=== PATIENT | male | born 1965 | race American Indian/Alaskan Native ===

== ENCOUNTER 2021-06-24 19:28 | Observation (INO) | payer OTHER ==
--- NOTE | 2021-06-24 23:22 | Emergency Department Report ---
HPI - General Chief Complaint: Head Injury Time Seen by Provider: 06/24/21 23:13 - HPI HPI: This is a 56-year-old -[place]ian male presents to the emergency department with a complaint of passing out while at work just prior to presentation. Patient says that he was feeling fine and then all of a sudden became very dizzy. He was witnessed passing out and woke up on his knees. He hit the right side of his head and his bottom lip on the wall. At the time of my examination the patient is awake, alert, oriented, AAO x3. He denies any previous history of passing out. He denies any current headache, neck pain, back pain, chest pain, palpitations. The patient had an EKG done through triage that showed SVT with a heart rate of 192 bpm. A second EKG done two minutes later showed sinus tachycardia at 123 bpm. He has a past medical history of hypertension, hyperlipidemia, diabetes. He did not take anything for his symptoms prior to presentation today. ED Past Medical Hx - Past Medical History Previous Medical History?: Yes Hx Hypertension: Yes Hx Diabetes: Yes Additional medical history: high cholesterol - Surgical History Past Surgical History?: No ED Review of Systems ROS: Stated complaint: SYNCOPAL EPISODE @ WORK/HIT FACE ON FLOOR Other details as noted in HPI Comment: All other systems reviewed and negative Constitutional: denies: chills, fever Eyes: denies: eye pain, vision change ENT: denies: ear pain, throat pain Respiratory: denies: cough, shortness of breath Cardiovascular: syncope. denies: chest pain Gastrointestinal: denies: abdominal pain, vomiting Genitourinary: denies: dysuria, discharge Musculoskeletal: denies: back pain, arthralgia Skin: denies: rash, lesions Neurological: denies: numbness, paresthesias Physical Exam - Physical Exam Vital Signs: Vital Signs 06/24/21 22:03 Temperature 98.4 F Pulse Rate 101 H Respiratory 16 Rate Blood Pressure 144/95 O2 Sat by Pulse 99 Oximetry Physical Exam: GENERAL: The patient is well-developed well-nourished. HENT: Normocephalic. Atraumatic. Patient has moist mucous membranes. EYES: Extraocular motions are intact. NECK: Supple. Trachea is midline. CHEST/LUNGS: Clear to auscultation. There is no respiratory distress noted. HEART/CARDIOVASCULAR: Regular. There is mild to moderate tachycardia. There is no murmur. ABDOMEN: Abdomen is soft, nontender. Patient has normal bowel sounds. There is no abdominal distention. SKIN: Skin is warm and dry. NEURO: The patient is awake, alert, and oriented. The patient is cooperative. The patient has no focal neurologic deficits. Normal speech. Cranial nerves II through XII grossly intact. No facial asymmetry. No pronator drift. MUSCULOSKELETAL: There is no tenderness or deformity. There is no limitation range of motion. ED Course Vital Signs 06/24/21 22:03 Temperature 98.4 F Pulse Rate 101 H Respiratory 16 Rate Blood Pressure 144/95 O2 Sat by Pulse 99 Oximetry - Reevaluation(s) Reevaluation #1: 06/24/21 23:55 I went to reevaluate the patient and found him to have a heart rate of about 200 and was back in SVT. The patient was given 6 mg of adenosine and converted back to a sinus tachycardia at about 125 bpm. ED Medical Decision Making - Lab Data Result diagrams: 06/24/21 23:03 06/24/21 23:03 Lab Results 06/24/21 06/24/21 06/24/21 Range/Units 23:03 23:03 23:19 WBC 7.8 (4.5-11.0) K/mm3 RBC 5.41 H (3.65-5.03) M/mm3 Hgb 15.0 (11.8-15.2) gm/dl Hct 45.5 (35.5-45.6) % MCV 84 (84-94) fl MCH 28 (28-32) pg MCHC 33 (32-34) % RDW 15.0 (13.2-15.2) % Plt Count 216 (140-440) K/mm3 Rice % (Auto) Flood Control Engineer Add Manual Diff Complete Total Counted 100 Seg Neuts % (Manual) 50.0 (40.0-70.0) % Band Neutrophils % 1.0 % Lymphocytes % (Manual) 33.0 (13.4-35.0) % Monocytes % (Manual) 12.0 H (0.0-7.3) % Eosinophils % (Manual) 4.0 (0.0-4.3) % Nucleated RBC % Not Reportable Seg Neutrophils # Man 3.9 (1.8-7.7) K/mm3 Band Neutrophils # 0.1 K/mm3 Lymphocytes # (Manual) 2.6 (1.2-5.4) K/mm3 Abs React Lymphs (Man) 0.0 K/mm3 Monocytes # (Manual) 0.9 H (0.0-0.8) K/mm3 Eosinophils # (Manual) 0.3 (0.0-0.4) K/mm3 Basophils # (Manual) 0.0 (0.0-0.1) K/mm3 Metamyelocytes # 0.0 K/mm3 Myelocytes # 0.0 K/mm3 Promyelocytes # 0.0 K/mm3 Blast Cells # 0.0 K/mm3 WBC Morphology Not Reportable Hypersegmented Neuts Not Reportable Hyposegmented Neuts Not Reportable Hypogranular Neuts Not Reportable Smudge Cells Not Reportable Toxic Granulation Not Reportable Toxic Vacuolation Not Reportable Dohle Bodies Not Reportable Pelger-Huet Anomaly Not Reportable [place] Rods Not Reportable Platelet Estimate Consistent w auto Clumped Platelets Not Reportable Plt Clumps, EDTA Not Reportable Large Platelets Not Reportable Giant Platelets Not Reportable Platelet Satelliting Not Reportable Plt Morphology Comment Not Reportable RBC Morphology Not Reportable Dimorphic RBCs Not Reportable Polychromasia Not Reportable Hypochromasia Not Reportable Poikilocytosis Not Reportable Anisocytosis 1+ Microcytosis Not Reportable Macrocytosis Not Reportable Spherocytes Not Reportable Pappenheimer Bodies Not Reportable Sickle Cells Not Reportable Target Cells Not Reportable Tear Drop Cells Not Reportable Ovalocytes Not Reportable Helmet Cells Not Reportable Baugh-Delight Bodies Not Reportable [place] Rings Not Reportable Rosalia Cells Not Reportable Bite Cells Not Reportable Crenated Cell Not Reportable Elliptocytes Not Reportable Acanthocytes (Spur) Not Reportable Rouleaux Not Reportable Hemoglobin C Crystals Not Reportable Schistocytes Not Reportable Malaria parasites Not Reportable Cam Bodies Not Reportable Hem Pathologist Commnt No D-Dimer (0-234) ng/mlDDU Sodium 138 (137-145) mmol/L Potassium 3.6 (3.6-5.0) mmol/L Chloride 101.1 (98-107) mmol/L Carbon Dioxide 24 (22-30) mmol/L Anion Gap 17 mmol/L BUN 18 (9-20) mg/dL Creatinine 1.1 (0.8-1.3) mg/dL Estimated GFR > 60 ml/min BUN/Creatinine Ratio 16 % Glucose 244 H (75-100) mg/dL Calcium 9.4 (8.4-10.2) mg/dL Total Bilirubin 0.60 (0.1-1.2) mg/dL AST 12 (5-40) units/L ALT 12 (7-56) units/L Alkaline Phosphatase 84 (35-129) units/L Troponin T < 0.010 (0.00-0.029) ng/mL Total Protein 8.0 (6.3-8.2) g/dL Albumin 4.3 (3.9-5) g/dL Albumin/Globulin Ratio 1.2 % TSH 1.090 (0.270-4.200) mlU/mL 06/24/21 Range/Units 23:19 WBC (4.5-11.0) K/mm3 RBC (3.65-5.03) M/mm3 Hgb (11.8-15.2) gm/dl Hct (35.5-45.6) % MCV (84-94) fl MCH (28-32) pg MCHC (32-34) % RDW (13.2-15.2) % Plt Count (140-440) K/mm3 Rice % (Auto) Add Manual Diff Total Counted Seg Neuts % (Manual) (40.0-70.0) % Band Neutrophils % % Lymphocytes % (Manual) (13.4-35.0) % Monocytes % (Manual) (0.0-7.3) % Eosinophils % (Manual) (0.0-4.3) % Nucleated RBC % Seg Neutrophils # Man (1.8-7.7) K/mm3 Band Neutrophils # K/mm3 Lymphocytes # (Manual) (1.2-5.4) K/mm3 Abs React Lymphs (Man) K/mm3 Monocytes # (Manual) (0.0-0.8) K/mm3 Eosinophils # (Manual) (0.0-0.4) K/mm3 Basophils # (Manual) (0.0-0.1) K/mm3 Metamyelocytes # K/mm3 Myelocytes # K/mm3 Promyelocytes # K/mm3 Blast Cells # K/mm3 WBC Morphology Hypersegmented Neuts Hyposegmented Neuts Hypogranular Neuts Smudge Cells Toxic Granulation Toxic Vacuolation Dohle Bodies Pelger-Huet Anomaly [place] Rods Platelet Estimate Clumped Platelets Plt Clumps, EDTA Large Platelets Giant Platelets Platelet Satelliting Plt Morphology Comment RBC Morphology Dimorphic RBCs Polychromasia Hypochromasia Poikilocytosis Anisocytosis Microcytosis Macrocytosis Spherocytes Pappenheimer Bodies Sickle Cells Target Cells Tear Drop Cells Ovalocytes Helmet Cells Baugh-Delight Bodies [place] Rings Rosalia Cells Bite Cells Crenated Cell Elliptocytes Acanthocytes (Spur) Rouleaux Hemoglobin C Crystals Schistocytes Malaria parasites Cam Bodies Hem Pathologist Commnt D-Dimer 618.88 H (0-234) ng/mlDDU Sodium (137-145) mmol/L Potassium (3.6-5.0) mmol/L Chloride (98-107) mmol/L Carbon Dioxide (22-30) mmol/L Anion Gap mmol/L BUN (9-20) mg/dL Creatinine (0.8-1.3) mg/dL Estimated GFR ml/min BUN/Creatinine Ratio % Glucose (75-100) mg/dL Calcium (8.4-10.2) mg/dL Total Bilirubin (0.1-1.2) mg/dL AST (5-40) units/L ALT (7-56) units/L Alkaline Phosphatase (35-129) units/L Troponin T (0.00-0.029) ng/mL Total Protein (6.3-8.2) g/dL Albumin (3.9-5) g/dL Albumin/Globulin Ratio % TSH (0.270-4.200) mlU/mL - EKG Data -: EKG Interpreted by Me - EKG Data Interpretation: other (EKG done at 2259 shows SVT with a rate of 190 bpm. Left axis deviation. Normal intervals. There are some ST depressions to the anterior, lateral and inferior leads most likely secondary to the extreme tachycardia.) 06/24/21 23:21 Repeat EKG at 2301 shows sinus tachycardia 123 bpm, left axis deviation, normal intervals, PVCs. No ST elevation MO. - Radiology Data Radiology results: report reviewed, image reviewed interpreted by me: Chest x-ray does not show any acute process. There are no pleural effusions, obvious pneumonia and there is no pneumothorax. No widened mediastinum CTA CHEST WITH CONTRAST INDICATION / CLINICAL INFORMATION: Palpitations, Syncope, Elevated dimer. TECHNIQUE: Axial CT images were obtained through the chest after injection of Omnipaque 350, 100 cc IV contrast. 3 plane MIP and/or 3D reconstructions were produced. All CT scans at this location are performed using CT dose reduction for ALARA by means of automated exposure control. COMPARISON: None available. FINDINGS: PULMONARY ARTERIES: No pulmonary emboli. THORACIC AORTA: No significant abnormality. HEART: No significant abnormality. CORONARY ARTERY CALCIFICATION: Mild. MEDIASTINUM / MAIA: No significant abnormality. PLEURA: No pleural effusion. No pneumothorax. LUNGS: No acute air space or interstitial disease. ADDITIONAL FINDINGS: None. UPPER ABDOMEN: Partially imaged right kidney is abnormal appearance with enlargement and suspected dilatation of the collecting system. SKELETAL STRUCTURES: No significant osseous abnormality. IMPRESSION: 1. No CT evidence for pulmonary embolism. 2. Negative for pneumonia. 3. Partially imaged abnormal appearing right kidney. Follow-up multiphase CT is recommended of the abdomen and pelvis. - Medical Decision Making This patient presented to the emergency department after he had a syncopal episode at work. During triage the patient was found to have severe tachycardia and an EKG showed SVT. 2 minutes later a repeat EKG showed sinus tachycardia at about 120 bpm. During my initial evaluation the patient is resting comfortably. Heart and lung sounds are normal to auscultation and he does not appear in any respiratory or acute distress. However, during a reevaluation the patient was found to have a heart rate of about 200 and once again appeared in SVT. He was given 6 mg of adenosine and converted back to sinus tachycardia. Chest x-ray does not show any pneumonia, pleural effusions, widened mediastinum, pneumothorax, or any other acute process. The patient's labs have been mostly unremarkable including CBC, metabolic panel, negative troponin. Patient had an elevated D-dimer level of about 600 and some hyperglycemia without evidence of DKA. Due to the elevated D-dimer level, tachycardia and syncope, patient had a CT angiography of the chest that did not show any pulmonary embolism, dissection, or any other acute process. The patient had a third round of SVT just prior to getting a dose of labetalol. After the labetalol, the patient once again went into sinus tachycardia. There have been no focal, motor or sensory deficits and the patient's cranial nerves are intact. No further syncopal episodes. However, given the recurrence of the episodes of SVT, the patient will be admitted to the hospital for further evaluation and treatment and was accepted for admission by the hospitalist, Dr. Reza. Critical care attestation.: If time is entered above; I have spent that time in minutes in the direct care of this critically ill patient, excluding procedure time. ED Disposition Clinical Impression: SVT (supraventricular tachycardia), Syncope Disposition: ADMITTED INPATIENT Is pt being admited?: Yes Condition: Serious Instructions: Syncope (ED) Referrals: MYRA PINEDASAN JOSE MD PATRICIA [Primary Care Provider] - 3-5 Days Time of Disposition: 02:00
--- NOTE | 2021-06-24 23:44 | XRay Report ---
CHEST 1 VIEW 06/24/2021 10:31 PM INDICATION / CLINICAL INFORMATION: Syncope. COMPARISON: None available. FINDINGS: SUPPORT DEVICES: None. HEART / MEDIASTINUM: No significant abnormality. LUNGS / PLEURA: No significant pulmonary or pleural abnormality. Lung volumes are diminished. No pneu mothorax. ADDITIONAL FINDINGS: No significant additional findings. IMPRESSION: No acute abnormality. Signer Name: Yovany Amezcua MD Signed: 06/24/2021 11:40 PM Workstation Name: [id number]
[2021-06-24 23:47] LABS: Hematocrit 45.5 % (35.5-45.6); Mean Corpuscular HGB Conc 33 % (32-34); Mean Corpuscular Volume 84 fl (84-94); Platelet Count 216 K/mm3 (140-440); Red Blood Count 5.41 M/mm3 (3.65-5.03)
[2021-06-24] MEDS ORDERED: ADENOSINE 6 MG/2 ML INJ ONE (23:50)
[2021-06-24] MEDS ORDERED: ADENOSINE 6 MG/2 ML INJ IV ONE (23:55)
[2021-06-24] MEDS ORDERED: SODIUM CHLORIDE 0.9% 1000 ML 1,000 ML IV ONE (23:55)
[2021-06-25] LABS: Alanine Aminotransferase 12 units/L (7-56); Albumin 4.3 g/dL (3.9-5); BUN/Creatinine Ratio 16; Blood Urea Nitrogen 18 mg/dL (9-20); Calcium 9.4 mg/dL (8.4-10.2); Hemolysis Index 5
--- NOTE | 2021-06-25 01:45 | Cat Scan Report ---
CTA CHEST WITH CONTRAST INDICATION / CLINICAL INFORMATION: Palpitations, Syncope, Elevated dimer. TECHNIQUE: Axial CT images were obtained through the chest after injection of Omnipaque 350, 100 cc I V contrast. 3 plane MIP and/or 3D reconstructions were produced. All CT scans at this location are pe rformed using CT dose reduction for ALARA by means of automated exposure control. COMPARISON: None available. FINDINGS: PULMONARY ARTERIES: No pulmonary emboli. THORACIC AORTA: No significant abnormality. HEART: No significant abnormality. CORONARY ARTERY CALCIFICATION: Mild. MEDIASTINUM / MAIA: No significant abnormality. PLEURA: No pleural effusion. No pneumothorax. LUNGS: No acute air space or interstitial disease. ADDITIONAL FINDINGS: None. UPPER ABDOMEN: Partially imaged right kidney is abnormal appearance with enlargement and suspected di latation of the collecting system. SKELETAL STRUCTURES: No significant osseous abnormality. IMPRESSION: 1. No CT evidence for pulmonary embolism. 2. Negative for pneumonia. 3. Partially imaged abnormal appearing right kidney. Follow-up multiphase CT is recommended of the ab domen and pelvis. Signer Name: Yovany Amezcua MD Signed: 06/25/2021 1:41 AM Workstation Name: [id number]
[2021-06-25] MEDS ORDERED: traMADol 50 MG TAB PO PRN (03:04)
[2021-06-25] MEDS ORDERED: MORPHINE 4 MG/1 ML INJ IV PRN (03:04)
[2021-06-25] MEDS ORDERED: ACETAMINOPHEN 325 MG TAB PO PRN (03:04)
[2021-06-25] MEDS ORDERED: DEXTROSE 50% IN WATER (25GM) 50 ML SYRINGE IV PRN (03:09)
[2021-06-25] MEDS ORDERED: hydrALAZINE 20 MG/1 ML INJ IV PRN (03:09)
--- NOTE | 2021-06-25 03:15 | History and Physical Report ---
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 Patient says that he was feeling fine and then all of a sudden became very dizzy. He was witnessed passing out and woke up on his knees. He hit the right side of his head and his bottom lip on the wall. At the time of my examination the patient is awake, alert, oriented, AAO x3. He denies any previous history of passing out. He denies any current headache, neck pain, back pain, chest pain, palpitations. The patient had an EKG done through triage that showed SVT with a heart rate of 192 bpm. Patient was found to have a heart rate around 200 and was back in SVT. Patient was given 6 mg of adenosine and converted to back to that sinus tachycardia at about 125 bpm. Med rec needs to be done. Advance discharge planning is initiated Past History Past Medical History: diabetes, hypertension, hyperlipidemia Medications and Allergies Allergies Allergy/AdvReac Type Severity Reaction Status Date / Time No Known Allergies Allergy Verified 06/24/21 23:52 Active Meds: Active Medications Acetaminophen (Acetaminophen 325 Mg Tab) 650 mg PO Q6H PRN PRN Reason: Pain, Mild (1-3) Aspirin (Aspirin 81 Mg Tab Chew) 81 mg PO QDAY MARC Atorvastatin Calcium (Atorvastatin 40 Mg Tab) 40 mg PO QHS MARC Dextrose (Dextrose 50% In Water (25gm) 50 Ml Syringe) 50 ml IV Q30MIN PRN; Protocol PRN Reason: Hypoglycemia Hydralazine HCl (Hydralazine 20 Mg/1 Ml Inj) 10 mg IV Q6H PRN PRN Reason: Blood Pressure Sodium Chloride (Nacl 0.9% 1000 Ml) 1,000 mls @ 250 mls/hr IV ONCE ONE Stop: 06/25/21 03:54 Last Admin: 06/24/21 23:59 Dose: 250 mls/hr Documented by: Insulin Human Lispro (Insulin Lispro 100 Unit/Ml) 0 unit SUB-Q ACHS MARC; Protocol Morphine Sulfate (Morphine 4 Mg/1 Ml Inj) 2 mg IV Q5MIN PRN PRN Reason: Chest Pain Pantoprazole Sodium (Pantoprazole 40 Mg Tab) 40 mg PO QDAY MARC Sodium Chloride (Sodium Chloride 0.9% 10 Ml Flush Syringe) 10 ml IV PRN PRN PRN Reason: LINE FLUSH Tramadol HCl (Tramadol 50 Mg Tab) 50 mg PO Q6H PRN PRN Reason: Pain, Moderate (4-6) Review of Systems All systems: negative Cardiovascular: syncope, lightheadedness, other (SVT) Exam - Constitutional Vitals: Temp Pulse Resp BP Pulse Ox 98.4 F 117 H 16 103/62 100 06/24/21 22:03 06/25/21 03:01 06/25/21 03:01 06/25/21 03:01 06/25/21 03:01 General appearance: Present: no acute distress, well-nourished - EENT Eyes: Present: PERRL ENT: hearing intact, clear oral mucosa - Neck Neck: Present: supple, normal ROM - Respiratory Respiratory effort: normal Respiratory: bilateral: CTA - Cardiovascular Heart Sounds: Present: S1 & S2. Absent: rub, click - Extremities Extremities: pulses symmetrical, No edema Peripheral Pulses: within normal limits - Abdominal General gastrointestinal: Present: soft, non-tender, non-distended, normal bowel sounds Male genitourinary: Present: normal - Integumentary Integumentary: Present: clear, warm, dry - Musculoskeletal Musculoskeletal: gait normal, strength equal bilaterally - Psychiatric Psychiatric: appropriate mood/affect, intact judgment & insight - Neurologic Neurologic: CNII-XII intact, moves all extremities HEART Score - HEART Score Troponin: Troponin T < 0.010 ng/mL (0.00-0.029) 06/24/21 23:03 Results - Labs CBC & Chem 7: 06/24/21 23:03 06/24/21 23:03 Labs: Laboratory Last Values WBC 7.8 K/mm3 (4.5-11.0) 06/24/21 23:03 RBC 5.41 M/mm3 (3.65-5.03) H 06/24/21 23:03 Hgb 15.0 gm/dl (11.8-15.2) 06/24/21 23:03 Hct 45.5 % (35.5-45.6) 06/24/21 23:03 MCV 84 fl (84-94) 06/24/21 23:03 MCH 28 pg (28-32) 06/24/21 23:03 MCHC 33 % (32-34) 06/24/21 23:03 RDW 15.0 % (13.2-15.2) 06/24/21 23:03 Plt Count 216 K/mm3 (140-440) 06/24/21 23:03 [place] % (Auto) Dispatch Machine Runner 06/24/21 23:03 D-Dimer 618.88 ng/mlDDU (0-234) H 06/24/21 23:19 Sodium 138 mmol/L (137-145) 06/24/21 23:03 Potassium 3.6 mmol/L (3.6-5.0) 06/24/21 23:03 Chloride 101.1 mmol/L (98-107) 06/24/21 23:03 Carbon Dioxide 24 mmol/L (22-30) 06/24/21 23:03 Anion Gap 17 mmol/L 06/24/21 23:03 BUN 18 mg/dL (9-20) 06/24/21 23:03 Creatinine 1.1 mg/dL (0.8-1.3) 06/24/21 23:03 Estimated GFR > 60 ml/min 06/24/21 23:03 BUN/Creatinine Ratio 16 % 06/24/21 23:03 Glucose 244 mg/dL (75-100) H 06/24/21 23:03 Calcium 9.4 mg/dL (8.4-10.2) 06/24/21 23:03 Total Bilirubin 0.60 mg/dL (0.1-1.2) 06/24/21 23:03 AST 12 units/L (5-40) 06/24/21 23:03 ALT 12 units/L (7-56) 06/24/21 23:03 Alkaline Phosphatase 84 units/L (35-129) 06/24/21 23:03 Troponin T < 0.010 ng/mL (0.00-0.029) 06/24/21 23:03 Total Protein 8.0 g/dL (6.3-8.2) 06/24/21 23:03 Albumin 4.3 g/dL (3.9-5) 06/24/21 23:03 Albumin/Globulin Ratio 1.2 % 06/24/21 23:03 TSH 1.090 mlU/mL (0.270-4.200) 06/24/21 23:19 - Imaging and Cardiology Chest x-ray: report reviewed CT scan - chest: report reviewed Assessment and Plan VTE prophylaxis?: Mechanical Plan of care discussed with patient/family: Yes - Patient Problems (1) Syncope Current Visit: Yes Status: Acute Plan to address problem: Admit the patient to the medical floor telemetry. Aspirin 81 mg p.o. daily. Lipitor 40 mg p.o. daily. Lopressor 25 mg p.o. twice daily. Will do serial cardiac enzyme. We also do echocardiogram and will consult cardiology to see the patient. (2) SVT (supraventricular tachycardia) Current Visit: Yes Status: Acute Plan to address problem: Aspirin 81 mg p.o. daily. Lipitor 40 mg p.o. daily. Lopressor 25 mg p.o. twice daily. Will do serial cardiac enzyme. We also do echocardiogram and will consult cardiology to see the patient. (3) Diabetes Current Visit: Yes Status: Acute Plan to address problem: 1800 kcal ADA diet. Humalog sliding scale moderate dose. Diabetic education (4) High blood pressure Current Visit: Yes Status: Acute Plan to address problem: Hydralazine 10 mg IV every 6 hours as needed. We will continue the home medication. We will monitor the patient closely (5) High cholesterol Current Visit: Yes Status: Acute Plan to address problem: Lipitor 40 mg p.o. daily. We will recheck the lipid panel (6) DVT prophylaxis Current Visit: Yes Status: Acute Plan to address problem: SCD for DVT prophylaxis until CT scan of the head is negative. Protonix 40 mg p.o. daily for GI prophylaxis. Patient is a full code
[2021-06-25 03:17] LABS: Anisocytosis 1+; Band Neutrophils # (Manual) 0.1 K/mm3; Platelet Estimate Consistent w Auto; Total Cells Counted 100
[2021-06-25 04:10] LABS: Hematocrit 42.2 % (35.5-45.6); Hemoglobin 13.6 gm/dl (11.8-15.2); Mean Corpuscular HGB Conc 32 % (32-34); Mean Corpuscular Volume 83 fl (84-94); Platelet Count 191 K/mm3 (140-440); Red Blood Count 5.07 M/mm3 (3.65-5.03)
[2021-06-25 04:30] LABS: BUN/Creatinine Ratio 19; Blood Urea Nitrogen 15 mg/dL (9-20); Calcium 8.8 mg/dL (8.4-10.2); Hemolysis Index 5
[2021-06-25 06:56] LABS: Total Cells Counted 100
[2021-06-25 06:57] LABS: Anisocytosis 1+; Platelet Estimate Consistent w Auto
[2021-06-25] MEDS: INSULIN LISPRO 100 UNIT/ML SUB-Q SCH ×3 (08:04→17:13)
--- NOTE | 2021-06-25 09:14 | Cat Scan Report ---
CT HEAD WITHOUT CONTRAST INDICATION / CLINICAL INFORMATION: syncope and pt hit the side of his head. . TECHNIQUE: All CT scans at this location are performed using CT dose reduction for ALARA by means of automated e xposure control. COMPARISON: None available. FINDINGS: HEMORRHAGE: No evidence of intracranial hemorrhage or extra-axial fluid collection. EXTRA-AXIAL SPACES: Cortical sulci, sylvian fissures and basilar cisterns have an unremarkable appear ance. VENTRICULAR SYSTEM: The third and lateral ventricles are of normal size and configuration. CEREBRAL PARENCHYMA: No areas of abnormal brain parenchymal attenuation are identified. There is no i ndication of recent infarction. MIDLINE SHIFT OR HERNIATION: There is no mass effect. CEREBELLUM / BRAINSTEM: Brainstem and cerebellum have an unremarkable appearance. MIDLINE STRUCTURES:No abnormalities of the pituitary gland or pineal region are identified. INTRACRANIAL VESSELS:No abnormalities are identified on this noncontrast head CT. ORBITS: visualized portions of the orbits have an unremarkable appearance. SOFT TISSUES of HEAD: No significant abnormality. CALVARIUM: Evaluation of bone windows reveals no abnormalities. PARANASAL SINUSES / MASTOID AIR CELLS: Visualized portions of the paranasal sinuses are free from inf lammatory mucosal disease. Mastoid air cells are normally pneumatized. IMPRESSION: 1. Negative head CT without contrast. Signer Name: Rakesh Shaw MD Signed: 06/25/2021 9:10 AM Workstation Name: [id number]
[2021-06-25] MEDS ORDERED: PANTOPRAZOLE 40 MG TAB PO SCH (10:00)
[2021-06-25] MEDS ORDERED: METOPROLOL TARTRATE 25 MG TAB PO SCH (10:00)
[2021-06-25] MEDS ORDERED: LISINOPRIL 40 MG TAB PO SCH (14:00)
--- NOTE | 2021-06-25 14:07 | Progress Note ---
Assessment and Plan Assessment and plan: (1) SVT (supraventricular tachycardia) Current Visit: Yes Status: Acute Plan to address problem: Aspirin 81 mg p.o. daily. Lipitor 40 mg p.o. daily. Lopressor 25 mg p.o. twice daily. Will do serial cardiac enzyme. We also do echocardiogram and will consult cardiology to see the patient. (2) Syncope Current Visit: Yes Status: Acute Plan to address problem: Likely secondary to arrhythmia admit the patient to the medical floor telemetry. Aspirin 81 mg p.o. daily. Lipitor 40 mg p.o. daily. Lopressor 25 mg p.o. twice daily. Will do serial cardiac enzyme. ECHO completed, awaiting read. Cardiology Consulted. (3) type II diabetes mellitus with hyperglycemia Current Visit: Yes Status: Acute Plan to address problem: 1800 kcal ADA diet. Humalog sliding scale moderate dose. Diabetic education (4) hypertensive emergency Current Visit: Yes Status: Acute Plan to address problem: Hydralazine 10 mg IV every 6 hours as needed. Start metoprolol 25 mg p.o. twice daily and lisinopril 40 mg daily we will monitor the patient closely (5) High cholesterol Current Visit: Yes Status: Acute Plan to address problem: Lipitor 40 mg p.o. daily. We will recheck the lipid panel (6) DVT prophylaxis Current Visit: Yes Status: Acute Plan to address problem: SCD for DVT prophylaxis until CT scan of the head is negative. Protonix 40 mg p.o. daily for GI prophylaxis. Patient is a full code History Interval history: No acute complaints on encounter. Patient had bedside intermission coordinator hooked up. Has occasional runs of SVT with ventricular rate in the 180s however is asymptomatic during these runs and blood pressure is stable. Was able to break SVT with Valsalva maneuver. Hospitalist Physical - Physical exam Narrative exam: Physical Exam: Constitutional: Alert, cooperative. No acute distress Head, Ears, Nose: Normocephalic, atraumatic. External ears, nose normal Eyes: Conjunctivae/corneas clear. No icterus. No ptosis. Neck: Supple, no meningeal signs Oral: dentition fair, no thrush Cardiovascular: S1, S2 normal. Tachycardic Respiratory: Good air entry, clear to auscultation bilaterally GI: Soft, non-tender; bowel sounds normal. No peritoneal signs. Musculoskeletal: No pedal edema, no cyanosis. Skin: No rash or abscess, see nursing assessment for full skin exam Hem/Lymphatic: No palpable cervical or supraclavicular nodes. No lymphangitis Psych: Mood ok. Affect normal Neurological: Awake, alert, oriented. No gross abnormality - Constitutional Vitals: Temp Pulse Resp BP Pulse Ox 98.4 F 126 H 20 160/125 99 06/24/21 22:03 06/25/21 10:15 06/25/21 06:15 06/25/21 10:15 06/25/21 06:15 General appearance: Present: no acute distress, well-nourished HEART Score - HEART Score Troponin: Troponin T < 0.010 ng/mL (0.00-0.029) 06/25/21 09:13 Results - Labs CBC & Chem 7: 06/25/21 03:50 06/25/21 03:50 Labs: Laboratory Last Values WBC 5.9 K/mm3 (4.5-11.0) 06/25/21 03:50 RBC 5.07 M/mm3 (3.65-5.03) H 06/25/21 03:50 Hgb 13.6 gm/dl (11.8-15.2) 06/25/21 03:50 Hct 42.2 % (35.5-45.6) 06/25/21 03:50 MCV 83 fl (84-94) L 06/25/21 03:50 MCH 27 pg (28-32) L 06/25/21 03:50 MCHC 32 % (32-34) 06/25/21 03:50 RDW 15.0 % (13.2-15.2) 06/25/21 03:50 Plt Count 191 K/mm3 (140-440) 06/25/21 03:50 [place] % (Auto) Cann[employer] Worker 06/25/21 03:50 Add Manual Diff Complete 06/25/21 03:50 Total Counted 100 06/25/21 03:50 Seg Neuts % (Manual) 54.0 % (40.0-70.0) 06/25/21 03:50 Band Neutrophils % 1.0 % 06/24/21 23:03 Lymphocytes % (Manual) 26.0 % (13.4-35.0) 06/25/21 03:50 Monocytes % (Manual) 20.0 % (0.0-7.3) H 06/25/21 03:50 Eosinophils % (Manual) 4.0 % (0.0-4.3) 06/24/21 23:03 Nucleated RBC % Not Reportable 06/25/21 03:50 Seg Neutrophils # Man 3.2 K/mm3 (1.8-7.7) 06/25/21 03:50 Band Neutrophils # 0.0 K/mm3 06/25/21 03:50 Lymphocytes # (Manual) 1.5 K/mm3 (1.2-5.4) 06/25/21 03:50 Abs React Lymphs (Man) 0.0 K/mm3 06/25/21 03:50 Monocytes # (Manual) 1.2 K/mm3 (0.0-0.8) H 06/25/21 03:50 Eosinophils # (Manual) 0.0 K/mm3 (0.0-0.4) 06/25/21 03:50 Basophils # (Manual) 0.0 K/mm3 (0.0-0.1) 06/25/21 03:50 Metamyelocytes # 0.0 K/mm3 06/25/21 03:50 Myelocytes # 0.0 K/mm3 06/25/21 03:50 Promyelocytes # 0.0 K/mm3 06/25/21 03:50 Blast Cells # 0.0 K/mm3 06/25/21 03:50 WBC Morphology Not Reportable 06/25/21 03:50 Hypersegmented Neuts Not Reportable 06/25/21 03:50 Hyposegmented Neuts Not Reportable 06/25/21 03:50 Hypogranular Neuts Not Reportable 06/25/21 03:50 Smudge Cells Not Reportable 06/25/21 03:50 Toxic Granulation Not Reportable 06/25/21 03:50 Toxic Vacuolation Not Reportable 06/25/21 03:50 Dohle Bodies Not Reportable 06/25/21 03:50 Pelger-Huet Anomaly Not Reportable 06/25/21 03:50 [place] Rods Not Reportable 06/25/21 03:50 Platelet Estimate Consistent w auto 06/25/21 03:50 Clumped Platelets Not Reportable 06/25/21 03:50 Plt Clumps, EDTA Not Reportable 06/25/21 03:50 Large Platelets Not Reportable 06/25/21 03:50 Giant Platelets Not Reportable 06/25/21 03:50 Platelet Satelliting Not Reportable 06/25/21 03:50 Plt Morphology Comment Not Reportable 06/25/21 03:50 RBC Morphology Not Reportable 06/25/21 03:50 Dimorphic RBCs Not Reportable 06/25/21 03:50 Polychromasia Not Reportable 06/25/21 03:50 Hypochromasia Not Reportable 06/25/21 03:50 Poikilocytosis Not Reportable 06/25/21 03:50 Anisocytosis 1+ 06/25/21 03:50 Microcytosis Not Reportable 06/25/21 03:50 Macrocytosis Not Reportable 06/25/21 03:50 Spherocytes Not Reportable 06/25/21 03:50 Pappenheimer Bodies Not Reportable 06/25/21 03:50 Sickle Cells Not Reportable 06/25/21 03:50 Target Cells Not Reportable 06/25/21 03:50 Tear Drop Cells Not Reportable 06/25/21 03:50 Ovalocytes Not Reportable 06/25/21 03:50 Helmet Cells Not Reportable 06/25/21 03:50 [place] Bodies Not Reportable 06/25/21 03:50 [place] Rings Not Reportable 06/25/21 03:50 [place] Cells Not Reportable 06/25/21 03:50 Bite Cells Not Reportable 06/25/21 03:50 Crenated Cell Not Reportable 06/25/21 03:50 Elliptocytes Not Reportable 06/25/21 03:50 Acanthocytes (Spur) Not Reportable 06/25/21 03:50 Rouleaux Not Reportable 06/25/21 03:50 Hemoglobin C Crystals Not Reportable 06/25/21 03:50 Schistocytes Not Reportable 06/25/21 03:50 Malaria parasites Not Reportable 06/25/21 03:50 Cam Bodies Not Reportable 06/25/21 03:50 Hem Pathologist Commnt No 06/25/21 03:50 D-Dimer 618.88 ng/mlDDU (0-234) H 06/24/21 23:19 Sodium 135 mmol/L (137-145) L 06/25/21 03:50 Potassium 3.1 mmol/L (3.6-5.0) L 06/25/21 03:50 Chloride 100.4 mmol/L (98-107) 06/25/21 03:50 Carbon Dioxide 23 mmol/L (22-30) 06/25/21 03:50 Anion Gap 15 mmol/L 06/25/21 03:50 BUN 15 mg/dL (9-20) 06/25/21 03:50 Creatinine 0.8 mg/dL (0.8-1.3) 06/25/21 03:50 Estimated GFR > 60 ml/min 06/25/21 03:50 BUN/Creatinine Ratio 19 % 06/25/21 03:50 Glucose 229 mg/dL (75-100) H 06/25/21 03:50 POC Glucose 210 mg/dL (70-105) H 06/25/21 07:30 Calcium 8.8 mg/dL (8.4-10.2) 06/25/21 03:50 Total Bilirubin 0.60 mg/dL (0.1-1.2) 06/24/21 23:03 AST 12 units/L (5-40) 06/24/21 23:03 ALT 12 units/L (7-56) 06/24/21 23:03 Alkaline Phosphatase 84 units/L (35-129) 06/24/21 23:03 Troponin T < 0.010 ng/mL (0.00-0.029) 06/25/21 09:13 Total Protein 8.0 g/dL (6.3-8.2) 06/24/21 23:03 Albumin 4.3 g/dL (3.9-5) 06/24/21 23:03 Albumin/Globulin Ratio 1.2 % 06/24/21 23:03 TSH 1.090 mlU/mL (0.270-4.200) 06/24/21 23:19 Active Medications - Current Medications Current Medications: Generic Name Dose Route Start Last Admin Trade Name Freq PRN Reason Stop Dose Admin Acetaminophen 650 mg 06/25/21 03:04 Acetaminophen 325 Mg Tab PO Q6H PRN Pain, Mild (1-3) Aspirin 81 mg 06/26/21 10:00 Aspirin 81 Mg Tab Chew PO QDAY [facility] Atorvastatin Calcium 40 mg 06/25/21 22:00 Atorvastatin 40 Mg Tab PO QHS [facility] Dextrose 50 ml 06/25/21 03:09 Dextrose 50% In Water (25gm) 50 Ml Syringe IV Q30MIN PRN Hypoglycemia Protocol Hydralazine HCl 10 mg 06/25/21 03:09 Hydralazine 20 Mg/1 Ml Inj IV Q6H PRN Blood Pressure Insulin Human Lispro 0 unit 06/25/21 07:30 06/25/21 13:38 Insulin Lispro 100 Unit/Ml SUB-Q Not Given ACHS [facility] Protocol Metoprolol Tartrate 25 mg 06/25/21 10:00 06/25/21 10:15 Metoprolol Tartrate 25 Mg Tab PO 25 mg BID MARC Administration Morphine Sulfate 2 mg 06/25/21 03:04 Morphine 4 Mg/1 Ml Inj IV Q5MIN PRN Chest Pain Pantoprazole Sodium 40 mg 06/25/21 10:00 06/25/21 10:16 Pantoprazole 40 Mg Tab PO 40 mg QDAY MARC Administration Sodium Chloride 10 ml 06/25/21 03:04 Sodium Chloride 0.9% 10 Ml Flush Syringe IV PRN PRN LINE FLUSH Tramadol HCl 50 mg 06/25/21 03:04 Tramadol 50 Mg Tab PO Q6H PRN Pain, Moderate (4-6)
--- NOTE | 2021-06-25 16:55 | Consultation ---
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 He was found to have SVT which was terminated with single dose of IV adenosine. He has had persistent sinus tachycardia with frequent PACs since that time. He denies any previous similar episodes Past History Past Medical History: diabetes, hypertension, hyperlipidemia Medications and Allergies Allergies Allergy/AdvReac Type Severity Reaction Status Date / Time No Known Allergies Allergy Verified 06/24/21 23:52 Active Meds: Active Medications Acetaminophen (Acetaminophen 325 Mg Tab) 650 mg PO Q6H PRN PRN Reason: Pain, Mild (1-3) Aspirin (Aspirin 81 Mg Tab Chew) 81 mg PO QDAY [facility] Atorvastatin Calcium (Atorvastatin 40 Mg Tab) 40 mg PO QHS [facility] Dextrose (Dextrose 50% In Water (25gm) 50 Ml Syringe) 50 ml IV Q30MIN PRN; Protocol PRN Reason: Hypoglycemia Hydralazine HCl (Hydralazine 20 Mg/1 Ml Inj) 10 mg IV Q6H PRN PRN Reason: Blood Pressure Insulin Human Lispro (Insulin Lispro 100 Unit/Ml) 0 unit SUB-Q ACHS [facility]; Protocol Last Admin: 06/25/21 13:38 Dose: Not Given Documented by: Lisinopril (Lisinopril 40 Mg Tab) 40 mg PO QDAY MARC Morphine Sulfate (Morphine 4 Mg/1 Ml Inj) 2 mg IV Q5MIN PRN PRN Reason: Chest Pain Pantoprazole Sodium (Pantoprazole 40 Mg Tab) 40 mg PO QDAY [facility] Last Admin: 06/25/21 10:16 Dose: 40 mg Documented by: Sodium Chloride (Sodium Chloride 0.9% 10 Ml Flush Syringe) 10 ml IV PRN PRN PRN Reason: LINE FLUSH Tramadol HCl (Tramadol 50 Mg Tab) 50 mg PO Q6H PRN PRN Reason: Pain, Moderate (4-6) Review of Systems All systems: negative (per) Physical Examination Vital Signs Temp Pulse Resp BP Pulse Ox 98.4 F 101 H 16 144/95 99 06/24/21 22:03 06/24/21 22:03 06/24/21 22:03 06/24/21 22:03 06/24/21 22:03 General appearance: no acute distress Neck: Positive: neck supple Cardiac: Positive: Reg Rate and Rhythm Lungs: Positive: clear to auscultation Abdomen: Positive: Soft, Active Bowel Sounds Extremities: Absent: edema Results 06/25/21 03:50 06/25/21 03:50 Cardiac Enzymes 06/24/21 Range/Units 23:03 AST 12 (5-40) units/L CBC 06/24/21 06/25/21 Range/Units 23:03 03:50 WBC 7.8 5.9 (4.5-11.0) K/mm3 RBC 5.41 H 5.07 H (3.65-5.03) M/mm3 Hgb 15.0 13.6 (11.8-15.2) gm/dl Hct 45.5 42.2 (35.5-45.6) % Plt Count 216 191 (140-440) K/mm3 Comprehensive Metabolic Panel 06/24/21 06/25/21 Range/Units 23:03 03:50 Sodium 138 135 L (137-145) mmol/L Potassium 3.6 3.1 L (3.6-5.0) mmol/L Chloride 101.1 100.4 (98-107) mmol/L Carbon Dioxide 24 23 (22-30) mmol/L BUN 18 15 (9-20) mg/dL Creatinine 1.1 0.8 (0.8-1.3) mg/dL Glucose 244 H 229 H (75-100) mg/dL Calcium 9.4 8.8 (8.4-10.2) mg/dL AST 12 (5-40) units/L ALT 12 (7-56) units/L Alkaline Phosphatase 84 (35-129) units/L Total Protein 8.0 (6.3-8.2) g/dL Albumin 4.3 (3.9-5) g/dL Assessment and Plan Episode of SVT terminated with IV adenosine Htn DM HL Hypokalemia Recommend: Increase beta sophia Replete potassium Check Echo Outpatient EP follow up
[2021-06-25] MEDS ORDERED: METOPROLOL TARTRATE 50 MG TAB PO SCH (22:00)
[2021-06-25] MEDS ORDERED: POTASSIUM CHLORIDE ER 20 MEQ TAB PO ONE (22:22)
--- NOTE | 2021-06-25 22:43 | Event Note ---
Date: 06/25/21 At patient request patient was discharged. Chart was reviewed Echo was reviewed Patient was discharged on his home insulin and metoprolol 50 mg twice a day Patient to follow-up with Dr. Alcaraz and Dr. Bundy Discharge summary to be done by Dr. Benita Waldrop
[2021-06-25 23:35] VITALS: BP 105/63
--- NOTE | 2021-06-26 08:33 | Discharge Summary ---
Providers - Providers Date of Admission: 06/25/21 02:00 Date of discharge: 06/25/21 Attending physician: GIANNA HESS MD 06/25/21 Consult to Cardiac Rehabilitation [CONS] Routine Reason For Exam: Phase I 06/25/21 02:01 Consult to Physician [CONS] Routine Comment: Consulting Provider: MANJU HORN Physician Instructions: Reason For Exam: Recurrent SVT 06/25/21 03:04 Consult to Cardiology [CONS] Routine Consulting Provider: MANJU HORN Reason For Exam: svt 06/25/21 03:09 Consult to Dietitian/Nutrition [CONS] Routine Physician Instructions: Reason For Exam: Reason for Consult: Diet education [facility] Reason for admission: syncope Condition: Good Hospital course: History of present illness: 56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 Patient says that he was feeling fine and then all of a sudden became very dizzy. He was witnessed passing out and woke up on his knees. He hit the right side of his head and his bottom lip on the wall. At the time of my examination the patient is awake, alert, oriented, AAO x3. He denies any previous history of passing out. He denies any current headache, neck pain, back pain, chest pain, palpitations. The patient had an EKG done through triage that showed SVT with a heart rate of 192 bpm. Patient was found to have a heart rate around 200 and was back in SVT. Patient was given 6 mg of adenosine and converted to back to that sinus tachycardia at about 125 bpm. (1) SVT (supraventricular tachycardia) Current Visit: Yes Status: Acute Plan to address problem: Aspirin 81 mg p.o. daily. Lipitor 40 mg p.o. daily. Lopressor 25 mg p.o. twice daily. Will do serial cardiac enzyme. We also do echocardiogram and will consult cardiology to see the patient. (2) Syncope Current Visit: Yes Status: Acute Plan to address problem: Likely secondary to arrhythmia admit the patient to the medical floor telemetry. Aspirin 81 mg p.o. daily. Lipitor 40 mg p.o. daily. Lopressor 25 mg p.o. twice daily. Will do serial cardiac enzyme. ECHO completed, awaiting read. Cardiology Consulted. (3) type II diabetes mellitus with hyperglycemia Current Visit: Yes Status: Acute Plan to address problem: 1800 kcal ADA diet. Humalog sliding scale moderate dose. Diabetic education (4) hypertensive emergency Current Visit: Yes Status: Acute Plan to address problem: Hydralazine 10 mg IV every 6 hours as needed. Start metoprolol 25 mg p.o. twice daily and lisinopril 40 mg daily we will monitor the patient closely (5) High cholesterol Current Visit: Yes Status: Acute Plan to address problem: Lipitor 40 mg p.o. daily. We will recheck the lipid panel (6) DVT prophylaxis Current Visit: Yes Status: Acute Plan to address problem: SCD for DVT prophylaxis until CT scan of the head is negative. Protonix 40 mg p.o. daily for GI prophylaxis. Patient is a full code Chart was reviewed Echo was reviewed Patient was discharged on his home insulin and metoprolol 50 mg twice a day OK for discharge per cardiology. Patient to follow-up with Dr. Alcaraz and Dr. Bundy Disposition: 01 HOME / SELF CARE / HOMELESS Final Discharge Diagnosis (Prints w/discharge instructions): supraventricular tachycardia Time spent for discharge: 25 - Discharge Diagnoses (1) Diabetes Status: Acute (2) High blood pressure Status: Acute (3) High cholesterol Status: Acute (4) SVT (supraventricular tachycardia) Status: Acute (5) Syncope Status: Acute Core Measure Documentation - Palliative Care Palliative Care/ Comfort Measures: Not Applicable - Core Measures Any of the following diagnoses?: none Exam - Physical Exam Narrative exam: Physical Exam: Constitutional: Alert, cooperative. No acute distress Head, Ears, Nose: Normocephalic, atraumatic. External ears, nose normal Eyes: Conjunctivae/corneas clear. No icterus. No ptosis. Neck: Supple, no meningeal signs Oral: dentition fair, no thrush Cardiovascular: S1, S2 normal. Tachycardic, improved Respiratory: Good air entry, clear to auscultation bilaterally GI: Soft, non-tender; bowel sounds normal. No peritoneal signs. Musculoskeletal: No pedal edema, no cyanosis. Skin: No rash or abscess, see nursing assessment for full skin exam Hem/Lymphatic: No palpable cervical or supraclavicular nodes. No lymphangitis Psych: Mood ok. Affect normal Neurological: Awake, alert, oriented. No gross abnormality - Constitutional Vitals: Temp Pulse Resp BP Pulse Ox 98.7 F 110 H 15 105/63 98 06/25/21 19:40 06/25/21 23:01 06/25/21 23:01 06/25/21 23:01 06/25/21 23:01 Plan Follow up with: BRIAN BUNDY MD [Staff Physician] - 7 Days [place] LEONA PINEDA MD [Primary Care Provider] - 3-5 Days
[2021-06-26] MEDS ORDERED: ASPIRIN 81 MG TAB CHEW PO SCH (10:00)
--- NOTE | 2021-06-28 08:48 | Electrocardiograph Report ---
[facility] Test Date: 2021-06-24 Test Time: 23:01:17 Pat Name: LOUISE ANDUJAR Department: Room: A490 1 Gender: M Mamma Logist: JUANITA : 1965 Requested By: EMILEE RASHID Order Number: [id number] Reading MD: Dom Shepherd Measurements Intervals [place] Rate: 123 P: 0 [place]: 166 QRS: -5 QRSD: 95 T: 82 QT: 322 QTc: 459 Interpretive Statements Sinus tachycardia Multiple premature complexes, vent & supraven Compared to ECG 06/24/2021 22:59:38 Supraventricular tachycardia no longer present Early repolarization no longer present Electronically Signed On 06-28-2021 8:48:13 EDT by Dom Shepherd
--- NOTE | 2021-06-28 08:48 | Electrocardiograph Report ---
[facility] Test Date: 2021-06-24 Test Time: 22:59:38 Pat Name: LOUISE ANDUJAR Department: Room: A490 1 Gender: M Software Configuration Specialist: JUANITA : 1965 Requested By: MILLI GIORDANO Order Number: [id number] Reading MD: Dom Shepherd Measurements Intervals [place] Rate: 192 P: 18 [place]: 108 QRS: 0 QRSD: 91 T: 191 QT: 274 QTc: 491 Interpretive Statements Supraventricular tachycardia Repolarization abnormality, prob rate related No previous ECG available for comparison Electronically Signed On 06-28-2021 8:48:06 EDT by Dom Shepherd
== END 2021-06-25 23:00 | disposition home or self-care (01) ==
LOC: ED 19:28 → 4A 06-25 02:00
PROVIDERS: ADMIT Hospitalist; ATTEND Internal Medicine
DX: R55 Syncope and collapse (principal); I47.1 Supraventricular tachycardia; I16.1 Hypertensive emergency; I10 Essential (primary) hypertension; E11.65 Type 2 diabetes mellitus with hyperglycemia; E78.00 Pure hypercholesterolemia, unspecified; E87.6 Hypokalemia; E78.5 Hyperlipidemia, unspecified; Z79.82 Long term (current) use of aspirin; Z79.4 Long term (current) use of insulin
CPT/HCPCS: 36415; 70450; 71045; 71275; 80048; 80053; 82962; 84443; 84484; 85025; 85379; 93005; 93306; 96361; 96372; 96374; 96375; 99285; G0378; J0153; Q9967; 85007; J1815